=== PATIENT | female | born 1945 | race Caucasian/White ===

== ENCOUNTER → 2017-07-07 | Outpatient (CLI) | payer MEDICARE | END | disposition home or self-care (01) | LOC: PCVCCLINIC 13:17 | DX: I10 Essential (primary) hypertension (principal); R00.2 Palpitations; R06.09 Other forms of dyspnea; K21.9 Gastro-esophageal reflux disease without esophagitis; Z79.82 Long term (current) use of aspirin; Z79.899 Other long term (current) drug therapy | CPT/HCPCS: 36415; 93005; G0463 ==

== ENCOUNTER → 2019-03-17 | Outpatient (CLI) | payer MEDICARE ==
--- NOTE | 2019-03-17 11:09 | PCVCIMAG ---
APPROVED REPORT Study performed: 03/17/2019 09:54:54 EXAM: Comprehensive 2D, Doppler, and color-flow Echocardiogram Patient Location: Echo lab Room #: 3Status: routine BSA: 1.74 HR: 70 bpmBP: 126/66 mmHg Rhythm: NSR Other Information Study Quality: Adequate Risk Factors: Cardiac Risk Factors: HTN, Hyperlipidemia Indications Palpitations Dyspnea on Exertion 2D Dimensions IVSd: 8.90 (7-11mm)LVOT Diam: 20.00 (18-24mm) LVDd: 39.98 mm PWd: 9.92 (7-11mm)Ascending Ao: 36.76 (22-36mm) LVDs: 27.28 (25-40mm) Left Atrium: 30.31 (27-40mm) Aortic Root: 32.72 mm LV Single Plane 4CH: 60.11 % LV Single Plane 2CH: 73.06 % Biplane EF: 67.6 % Volumes Left Atrial Volume (Systole) Single Plane 4CH: 43.72 mLSingle Plane 2CH: 50.70 mL Aortic Valve AoV Peak Paresh.: 1.24 m/s AO Peak Gr.: 6.16 mmHgLVOT Max P.59 mmHg LVOT Max V: 0.95 m/s LAVELL Vmax: 2.31 cm2 Mitral Valve E/A Ratio: 0.6 MV Decel. Time: 287.70 ms MV E Max Paresh.: 0.58 m/s MV A Paresh.: 0.91 m/s IVRT: 55.36 ms TDI E/Lateral E': 8.29E/Medial E': 11.60 Medial E' Paresh.: 0.05 m/s Lateral E' Paresh.: 0.07 m/s Pulmonary Valve PV Peak Paresh.: 0.85 m/sPV Peak Gr.: 2.86 mmHg Tricuspid Valve RAP Estimate: 7.00 mmHg Left Ventricle The left ventricle is normal size. There is normal LV segmental wall motion. There is normal left ventricular wall thickness. Left ventricular systolic function is normal. The left ventricular ejection fraction is within the normal range. LVEF is 60-65%. Mild diastolic dysfunction is present (impaired relaxation pattern). Right Ventricle The right ventricle is normal size. The right ventricular systolic function is normal. Atria The left atrium size is normal. The right atrium size is normal. Aortic Valve The aortic valve is normal in structure. No aortic regurgitation is present. There is no aortic valvular stenosis. Mitral Valve The mitral valve is normal in structure. There is no mitral valve regurgitation noted. No evidence of mitral valve stenosis. Tricuspid Valve The tricuspid valve is normal in structure. There is no tricuspid valve regurgitation noted. Pulmonic Valve The pulmonary valve is normal in structure. There is no pulmonic valvular regurgitation. Great Vessels The aortic root is normal in size. The ascending aorta is normal in size. IVC is normal in size and collapses >50% with inspiration. Pericardium There is no pericardial effusion. <Conclusion> The left ventricle is normal size. There is normal left ventricular wall thickness. Left ventricular systolic function is normal. Mild diastolic dysfunction is present (impaired relaxation pattern). The right ventricle is normal size. The left atrium size is normal. The aortic valve is normal in structure. There is no mitral valve regurgitation noted. There is no tricuspid valve regurgitation noted.
== END | disposition home or self-care (01) ==
LOC: PCVCIMAG 10:20
PROVIDERS: ATTEND Internal Medicine Cardiovascular Disease
DX: I10 Essential (primary) hypertension (principal); K21.9 Gastro-esophageal reflux disease without esophagitis; E78.5 Hyperlipidemia, unspecified; K44.9 Diaphragmatic hernia without obstruction or gangrene; M19.90 Unspecified osteoarthritis, unspecified site; G47.30 Sleep apnea, unspecified; Z90.710 Acquired absence of both cervix and uterus; Z82.3 Family history of stroke; Z88.1 Allergy status to other antibiotic agents; Z88.8 Allergy status to other drugs, medicaments and biological substances; Z79.82 Long term (current) use of aspirin; Z79.899 Other long term (current) drug therapy
CPT/HCPCS: 93005; 93306; G0463